=== PATIENT | male | born 1965 | race Caucasian/White ===

== ENCOUNTER 2024-12-12 09:20 | Emergency (ER) | payer OTHER ==
[2024-12-12] MEDS ORDERED: NA CHLORIDE 0.9% 1,000 ML ONE (09:57)
[2024-12-12] MEDS ORDERED: ONDANSETRON 4 MG/2 ML VIAL ONE (09:57)
--- NOTE | 2024-12-12 10:35 | RAD REPORT ---
Procedure: Chest Pa And Lat (2 Views) HISTORY: Cough COMPARISON: none FINDINGS: The lungs appear clear of acute infiltrate. No significant pleural effusion noted. The heart is normal size. IMPRESSION: No acute abnormality is displayed.
--- NOTE | 2024-12-12 11:07 | EDPHYS ---
Physician Documentation [facility] Name: Livan Avila Age: 59 yrs Sex: Male : 1965 Arrival Date: 12/12/2024 Time: 09:20 Bed 6 Private MD: ED Physician Rick Zamarripa HPI: 12/12 10:20 This 59 yrs old Male presents to ER via Ambulatory with complaints of dr5 Breathing Difficulty. 10:20 This 59 yrs old Male presents to ER via Ambulatory with complaints of feelings of dr5 nausea, cough, and rectal pain. 10:20 The patient has shortness of breath. Onset: The symptoms/episode began/occurred 2 dr5 day(s) ago. Patient is a 59-year-old male with history of colon polyps and kidney cancer coming in with possible rectal pain and the feeling of "I have parasites". Patient also reports he has a cough with productive sputum that is clear in nature. Patient states that he is currently being seen by Krystle Eid and has an appointment scheduled to be seen on Saturday at 3 PM. Patient is currently collecting a stool sample per their orders as well as has CT of chest abdomen pelvis scheduled in approximately a week.. Historical: - Allergies: 09:36 Codeine; aa5 09:36 Morphine; aa5 - PMHx: 09:36 Colon Polyps; Precancerous; Vertigo; Kidney Cancer (Unknown); aa5 - PSHx: 09:36 Appendectomy; aa5 - Immunization history:: Adult Immunizations unknown. - Infectious Disease History:: Denies. - Social history:: Smoking status: Reported history of juuling and/or vaping. ROS: 10:20 Constitutional: as per hpi dr5 Exam: 10:20 Constitutional: This is a well developed, well nourished patient who is awake, alert, dr5 and in no acute distress. Head/Face: Normocephalic, atraumatic. ENT: Nares patent. No nasal discharge, no septal abnormalities noted. Tympanic membranes are normal and external auditory canals are clear. Oropharynx with no redness, swelling, or masses, exudates, or evidence of obstruction, uvula midline. Mucous membranes moist. Neck: Trachea midline, no thyromegaly or masses palpated, and no cervical lymphadenopathy. Supple, full range of motion without nuchal rigidity, or vertebral point tenderness. No Meningismus. Chest/axilla: Normal chest wall appearance and motion. Nontender with no deformity. No lesions are appreciated. Cardiovascular: Regular rate and rhythm with a normal S1 and S2. Normal PMI, no JVD. No pulse deficits. Respiratory: Lungs have equal breath sounds bilaterally, clear to auscultation. No rales, rhonchi or wheezes noted. No increased work of breathing, no retractions or nasal flaring. Back: No spinal tenderness. No costovertebral tenderness. Full range of motion. Skin: Warm, dry with normal turgor. Normal color with no rashes, no lesions, and no evidence of cellulitis. Neuro: Awake and alert, GCS 15, oriented to person, place, time, and situation. Cranial nerves II-XII grossly intact. Motor strength 5/5 in all extremities. Sensory grossly intact. Cerebellar exam normal. Normal gait. 10:20 : CVA tenderness, is absent, Male external genitalia: normal, Rectal exam: hemorrhoid(s), external, are present, JEEVAN Bang[place]. No thrombosed hemorrhoid appreciated. No bleeding or pinworms noted., Vital Signs: 09:26 BP 128 / 97; Pulse 82; Resp 18 S; Temp 97.8(TE); Pulse Ox 98% on R/A; Weight 53.07 kg aa5 (R); Height 5 ft. 7 in. (R); 11:00 BP 128 / 97; Pulse 54; Resp 16; Pulse Ox 99% on R/A; hb 09:26 Body Mass Index 18.32 (53.07 kg, 170.18 cm) aa5 MDM: 09:24 Medical Screening Exam initiated dr5 09:48 ED course: Patient has CT scan of C/A/P on December 21 with Krystle Eid. Patient is dr5 currently giving a stool sample and dropping it off Saturday for evaluation.. 11:38 Differential diagnosis: asthma, Bronchitis pneumonia. Antibiotic administration: Not dr5 indicated, the patient does not have an appreciated infiltrate. Data reviewed: vital signs, nurses notes, radiologic studies, plain films. I considered the following discharge prescriptions or medication management in the emergency department Medications were administered in the Emergency Department. See MAR. Care significantly affected by the following chronic conditions: Colon polyps and kidney cancer. Care significantly affected by the following Social Determinants of Health: Poor access to healthcare and/or lack of insurance, Poor access to transportation, Problems related to employment. Counseling: I had a detailed discussion with the patient and/or guardian regarding the historical points, exam findings, and any diagnostic results supporting the discharge/admit diagnosis, the presence of at least one elevated blood pressure reading (>120/80) during this emergency department visit, radiology results, the need for outpatient follow up, for definitive care, a family practitioner, to return to the emergency department if symptoms worsen or persist or if there are any questions or concerns that arise at home. Medication response: Zofran relieved the patient's nausea. ED course: Patient reports he is feeling much better. Discussed hemorrhoids and sitz baths to help relieve pain. Reiterated and encouraged patient to keep appointment on Saturday at 3 PM and to take samples as required. All questions answered and patient is feeling much better. No pain at this time. All questions answered. Strict ER precautions given. 12/12 09:56 Order name: Chest Pa And Lat (2 Views) XRAY; Complete Time: 10:52 dr5 Administered Medications: 10:06 Drug: NS 0.9% IV 1000 ml IV at 1000 ml once; to be given as a bolus over 60 minutes hb Route: IV; Rate: 1000 ml; Site: left antecubital; 10:59 Follow up: Response: No adverse reaction; IV Status: Completed infusion; IV Intake: hb 1000ml 10:06 Drug: Ondansetron IVP 4 mg IVP once; over 2 minutes Route: IVP; Site: left antecubital; hb 10:40 Follow up: Response: No adverse reaction hb Disposition Summary: 12/12/24 11:07 Discharge Ordered Notes: Location: Home dr5 Condition: Stable dr5 Diagnosis - Acute pharyngitis, unspecified dr5 - Unspecified hemorrhoids dr5 Followup: dr5 - With: Emergency Department - When: As needed - Reason: Worsening of condition Followup: dr5 - With: Private Physician - When: 1 - 2 days - Reason: Recheck today's complaints, Continuance of care, Re-evaluation by your physician Discharge Instructions: - Discharge Summary Sheet dr5 - Hemorrhoids dr5 - How to Take a Sitz Bath dr5 - Sore Throat dr5 Forms: - Medication Reconciliation Form dr5 - Patient Portal Instructions dr5 - Leadership Thank You Letter dr5 Prescriptions: - Ibuprofen 800 mg Oral Tablet - take 1 tablet ORAL route every 12 hours As needed take with food; 20 tablet; dr5 Refills: 0, Product Selection Permitted Signatures: Dispatcher [employer] Ирина Khan, RN RN aa5 Sveta Nolan RN RN hb Maynor, Corona, WOOD FLOOR LAYER-C WOOD FLOOR LAYER-Cdr5 Corrections: (The following items were deleted from the chart) 09:57 09:57 Chest Pa And Lat (2 Views)+RAD.RAD.BRZ ordered. EDMS EDMS
--- NOTE | 2024-12-12 11:07 | ER ---
Nurse's Notes [facility] Name: Livan Avila Age: 59 yrs Sex: Male : 1965 Arrival Date: 12/12/2024 Time: 09:20 Bed 6 Private MD: Diagnosis: Acute pharyngitis, unspecified;Unspecified hemorrhoids Presentation: 12/12 09:26 Chief complaint: Patient states: rectal pain and states "I think I have parasites". aa5 09:26 Coronavirus screen: At this time, the client does not indicate any symptoms associated aa5 with coronavirus-19. Ebola Screen: Patient denies travel to an Ebola-affected area in the 21 days before illness onset. Initial Sepsis Screen: Does the patient meet any 2 criteria? No. Patient's initial sepsis screen is negative. Does the patient have a suspected source of infection? No. Patient's initial sepsis screen is negative. Risk Assessment: Do you want to hurt yourself or someone else? Patient reports no desire to harm self or others. Onset of symptoms was 2024. 09:26 Acuity: RASHEED 3 aa5 09:26 Method Of Arrival: Ambulatory aa5 Historical: - Allergies: 09:36 Codeine; aa5 09:36 Morphine; aa5 - PMHx: 09:36 Colon Polyps; Precancerous; Vertigo; Kidney Cancer (Unknown); aa5 - PSHx: 09:36 Appendectomy; aa5 - Immunization history:: Adult Immunizations unknown. - Infectious Disease History:: Denies. - Social history:: Smoking status: Reported history of juuling and/or vaping. Screenin:[address] [facility] ED Fall Risk Assessment (Adult) History of falling in the last 3 months, hb including since admission No falls in past 3 months (0 pts) Confusion or Disorientation No (0 pts) Intoxicated or Sedated No (0 pts) Impaired Gait No (0 pts) Mobility Assist Device Used No (0 pt) Altered Elimination No (0 pt) Score/Fall Risk Level 0 - 2 = Low Risk Oriented to surroundings, Maintained a safe environment, Educated pt \\T\\ family on fall prevention, incl call for assistance when getting out of bed. Abuse screen: Denies threats or abuse. Denies injuries from another. Nutritional screening: No deficits noted. Tuberculosis screening: No symptoms or risk factors identified. Assessment: 10:07 General: Appears in no apparent distress. Behavior is calm, cooperative. Pain: Denies hb pain. Neuro: Level of Consciousness is awake, alert, obeys commands, Oriented to person, place, time, situation. Cardiovascular: Patient's skin is warm and dry. Rhythm is regular. Respiratory: Reports shortness of breath Airway is patent Respiratory effort is even, unlabored, Respiratory pattern is regular, symmetrical. GI: Reports nausea, tingling in rectum. : No signs and/or symptoms were reported regarding the genitourinary system. EENT: No signs and/or symptoms were reported regarding the EENT system. Derm: Skin is pink, warm \\T\\ dry. Musculoskeletal: No signs and/or symptoms reported regarding the musculoskeletal system. 11:00 Reassessment: Patient appears in no apparent distress at this time. Patient and/or hb family updated on plan of care and expected duration. Pain level reassessed. Patient is alert, oriented x 3, equal unlabored respirations, skin warm/dry/pink. 11:51 Reassessment: Patient appears in no apparent distress at this time. Patient and/or hb family updated on plan of care and expected duration. Pain level reassessed. Patient is alert, oriented x 3, equal unlabored respirations, skin warm/dry/pink. Vital Signs: 09:26 BP 128 / 97; Pulse 82; Resp 18 S; Temp 97.8(TE); Pulse Ox 98% on R/A; Weight 53.07 kg aa5 (R); Height 5 ft. 7 in. (R); 11:00 BP 128 / 97; Pulse 54; Resp 16; Pulse Ox 99% on R/A; hb 09:26 Body Mass Index 18.32 (53.07 kg, 170.18 cm) aa5 ED Course: 09:23 Patient arrived in ED. rg4 09:23 Corona Mcguire FNP-C [facility]. dr5 09:23 Rick Zamarripa MD is Attending Physician. dr5 09:26 Arm band placed on Patient placed in an exam room, on a stretcher. aa5 09:38 Triage completed. aa5 09:57 Nikolai Coello, RN is Primary Nurse. bp 10:05 Inserted saline lock: 20 gauge in left antecubital area, using aseptic technique. hb Flushed with 10 mL NS. 10:07 Patient has correct armband on for positive identification. Placed in gown. Bed in low hb position. Call light in reach. Provided Education on: tests, result times, medications, use of call light. Door closed. Warm blanket given. 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 hb 10:27 Chest Pa And Lat (2 Views) XRAY In Process Unspecified. EDMS 11:51 IV discontinued, intact, bleeding controlled, No redness/swelling at site. Pressure hb dressing applied. Administered Medications: 10:06 Drug: NS 0.9% IV 1000 ml IV at 1000 ml once; to be given as a bolus over 60 minutes hb Route: IV; Rate: 1000 ml; Site: left antecubital; 10:59 Follow up: Response: No adverse reaction; IV Status: Completed infusion; IV Intake: hb 1000ml 10:06 Drug: Ondansetron IVP 4 mg IVP once; over 2 minutes Route: IVP; Site: left antecubital; hb 10:40 Follow up: Response: No adverse reaction hb Medication: 10:07 VIS not applicable for this client. hb Intake: 10:59 IV: 1000ml; Total: 1000ml. hb Outcome: 11:07 Discharge ordered by MD. dr5 11:51 Discharged to home ambulatory, hb 11:51 Condition: stable 11:51 Discharge instructions given to patient, Instructed on discharge instructions, follow up and referral plans. medication usage, Demonstrated understanding of instructions, follow-up care, medications, Prescriptions given X 1, 11:52 Patient left the ED. hb Signatures: Dispatcher [employer] EDNM Ирина Uribe, RN RN aa5 Sveta Nolan, RN Lyric Slater rg4 Nikolai Coello, RN RN Corona Zaragoza, ROAD MENDER-C ROAD MENDER-Cdr5
[2024-12-12 12:10] VITALS: BP 128/97; TEMP 97.8
[2024-12-12 12:15] VITALS: O2SAT 99
== END 2024-12-12 11:52 | disposition home or self-care (01) ==
LOC: ER 09:20
DX: J02.9 Acute pharyngitis, unspecified (principal); K64.9 Unspecified hemorrhoids; R05.9 Cough, unspecified; R11.0 Nausea
CPT/HCPCS: 96361; 71046; 96374; 99284; J2405; J7030

== ENCOUNTER 2024-12-15 10:13 | Emergency (ER) | payer OTHER ==
[2024-12-15] MEDS ORDERED: FENTANYL CITR 100 MCG/2 ML ONE (10:34)
[2024-12-15] MEDS ORDERED: ONDANSETRON 4 MG/2 ML VIAL ONE (10:34)
[2024-12-15] MEDS ORDERED: NA CHLORIDE 0.9% 1,000 ML ONE (10:35)
[2024-12-15 10:49] LABS: Absolute Eosinophils 0.1 K/uL (0-0.5); Absolute Lymphocytes (CBC) 1.2 K/uL (0.7-4.9); Absolute Monocytes 0.4 K/uL (0.1-1.3); Absolute Neutrophil 2.4 K/uL (1.8-8.0); Basophils % 0.7 % (0-1.3); Eosinophils % 1.7 % (0-4.4); Hematocrit 35.3 % (39.6-49.0); Hemoglobin 12.1 g/dL (13.6-17.9); Lymphocytes % 29.9 % (15.3-44.8); MCH 33.5 pg (27.0-35.0); MCHC 34.4 g/dL (32.0-36.0); MCV 97.4 fL (80-100); MPV 11.4 fL (7.6-11.3); Neutrophils % 57.7 % (41.7-73.7); Nucleated Red Blood Cells % 0.1 % (0-0); Platelets 67 thou/uL (152-406); RBC Red Blood Cell Count 3.62 M/uL (4.33-5.43); Red Cell Distribution Width 14.5 % (12.1-15.2)
[2024-12-15 11:02] LABS: AST/SGOT 11 U/L (15-37); Albumin 3.4 g/dL (3.4-5.0); Albumin/Globulin Ratio 1.1 (1.1-1.8); Alkaline Phosphatase 53 U/L (45-117); Anion Gap 3.9 mEq/L (5.0-15.0); BUN Blood Urea Nitrogen 11 mg/dL (7-18); Bicarbonate 33 mEq/L (21-32); Bilirubin Total 0.3 mg/dL (0.2-1.0); Globulin 3.2 g/dL (2.3-3.5); Glomerular Filtration Rate 82 ml/min (=/>90); Glucose Level 111 mg/dL (74-106); Lipase 59 U/L (13-75); Potassium 3.9 mEq/L (3.5-5.1); Protein, Total 6.6 g/dL (6.4-8.2); Sodium Level 139 mEq/L (136-145)
[2024-12-15 11:04] LABS: ALT/SGPT < 14 U/L (16-61)
--- NOTE | 2024-12-15 11:44 | RAD REPORT ---
EXAMINATION: Abdomen Pelvis W Contrast CLINICAL INDICATION: Male, 59 years old.ABD PAIN TECHNIQUE: CT abdomen and pelvis was performed, after the administration of IV contrast, as per [facility] protocol. Axial, sagittal and coronal reconstructions were obtained. One or more of the following dose reduction techniques were used: Automated exposure control, adjustment of the mA and/o r kV according to patient size, and/or iterative reconstruction. Unless otherwise specified, incidental findings do not require dedicated imaging follow-up. [id number]. COMPARISON: 11/23/2023 FINDINGS: LOWER CHEST: No acute process identified.No significant pericardial effusion. Mild coronary artery ca lcifications.Mild circumferential thickening of the distal esophagus which could reflect esophagitis. UPPER GI: No significant abnormality. LIVER: Benign appearing low density liver lesions. No suspicious mass. GALLBLADDER/BILE DUCTS: No biliary ductal dilatation.? PANCREAS: No mass, ductal dilation, or himanshu-pancreatic fluid. SPLEEN: Unremarkable. ADRENALS: No adrenal masses. KIDNEYS AND URETERS: No hydronephrosis.Indeterminate left renal lesion measuring 2.5 cm, previously 1 .6 cm. The lesion does appear more cystic compared with prior.No renal calculi. ABDOMINAL AORTA AND OTHER VESSELS: Moderate atherosclerotic changes without aortic aneurysm. PERITONEUM: No abnormal free fluid. No free air. LYMPH NODES: No pathologic lymphadenopathy. ABDOMINAL WALL: Unremarkable SMALL BOWEL/COLON: Small bowel has normal course and caliber. No colonic wall thickening or pericolon ic inflammatory changes.Nonvisualized appendix but no secondary signs of acute appendicitis. URINARY BLADDER: Underdistended but grossly unremarkable. REPRODUCTIVE ORGANS: No pathologic process. MUSCULOSKELETAL: No acute or suspicious osseous abnormality. ADDITIONAL FINDINGS: None. IMPRESSION: No acute findings within the abdomen or pelvis. Indeterminate left renal lesion which is increased in size but appears more cystic. Urologic referral, if not previously obtained, is recommended. Incidental findings as noted above.
--- NOTE | 2024-12-15 11:50 | EDPHYS ---
Physician Documentation [facility] Name: Livan Avila Age: 59 yrs Sex: Male : 1965 Arrival Date: 12/15/2024 Time: 10:13 Bed 17 Private MD: ED Physician Davide Gorman HPI: 12/15 10:25 This 59 yrs old Male presents to ER via Unassigned with unknown complaint. ec2 10:25 Patient arrives today d/t concern for abd pain. reports that he has a hx of abd wall ec2 hernia. pt has external papers that show recent ct ap imaging in 08/2024 that specifically comment no abd wall hernia. reports that he is having worsening abd pain, reports some nausea. no vomiting, denies any blood in the stool. Historical: - Allergies: 10:27 Codeine; ap3 10:27 Morphine; ap3 - PMHx: 10:27 Colon Polyps; Precancerous; colon cancer (kidney cancer); Vertigo; ap3 - PSHx: 10:27 Appendectomy; ap3 - Immunization history:: Client reports receiving the 2nd dose of the Covid vaccine, Flu vaccine is not up to date. - Infectious Disease History:: Denies. - Social history:: Smoking status: unknown. ROS: 10:27 Constitutional: as per hpi ec2 Exam: 10:27 Constitutional: GEN: NAD Head: atraumatic Eyes: EOMI Ears: External ears are ec2 normal. CV: regular rate LUNGS: no respiratory distress ABD: non-distended, soft, generally tender, not guarding, not rigid, no abdominal wall hernias appreciated. SKIN: no evidence of rashes MSK: no evidence of trauma Vital Signs: 10:24 BP 140 / 83; Pulse 73; Resp 19; Temp 98(O); Pulse Ox 100% on R/A; Weight 51.71 kg; ap3 Height 5 ft. 7 in. ; 10:24 Body Mass Index 17.85 (51.71 kg, 170.18 cm) ap3 MDM: 10:23 Medical Screening Exam initiated ec2 10:27 Data reviewed: vital signs, nurses notes. ED course: Patient arrives today for ec2 evaluation of worsening abdominal pain. Examination yields abdominal findings above. Will obtain lab work, CT imaging and treat the patient's symptoms. DDx includes Enteritis, diverticulitis, doubt obstruction. 11:46 ED course: CBC shows leukopenia along with slight anemia, CMP shows no acute correction ec2 will processes lipase within normal ranges. CT abdomen pelvis shows no acute intra-abdominal process on reassessment patient is well-appearing no acute distress. Will discharge home and have patient follow-up PCP and GI. Return precautions given.. 12/15 10:25 Order name: CBC with Diff ec2 12/15 10:25 Order name: CMP; Complete Time: 11:33 ec2 12/15 10:25 Order name: Lipase; Complete Time: 11:33 ec2 12/15 12:21 Order name: CBC Smear Scan EDMS 12/15 10:25 Order name: CT Abd/Pelvis - IV Contrast Only; Complete Time: 11:46 ec2 12/15 10:25 Order name: IV Saline Lock; Complete Time: 10:41 ec2 12/15 10:25 Order name: Labs collected and sent; Complete Time: 10:41 ec2 Administered Medications: 10:44 Drug: Ondansetron IVP 4 mg IVP once; over 2 minutes Route: IVP; Site: left antecubital; jl7 12:22 Follow up: Response: No adverse reaction; Nausea is decreased ap3 10:44 Drug: NS 0.9% IV 1000 ml IV at 1 bolus Per protocol; to be given as a bolus over 60 jl7 minutes Route: IV; Rate: 1 bolus; Site: left antecubital; 12:22 Follow up: IV Status: Completed infusion; IV Intake: 1000ml ap3 10:44 Drug: fentaNYL (PF) IVP 50 mcg IVP once Route: IVP; Site: left antecubital; jl7 12:22 Follow up: Response: No adverse reaction; Pain is decreased ap3 Disposition Summary: 12/15/24 11:50 Discharge Ordered Notes: Location: Home ec2 Condition: Stable ec2 Diagnosis - Abdominal pain, Generalized ec2 Followup: ec2 - With: Private Physician - When: - Reason: Re-evaluation by your physician Discharge Instructions: - Discharge Summary Sheet ec2 - Abdominal Pain, Adult ec2 Forms: - Medication Reconciliation Form ec2 - Antibiotic Education ec2 - Prescription Opioid Use ec2 - Patient Portal Instructions ec2 - Leadership Thank You Letter ec2 Prescriptions: - Meclizine 25 mg Oral Tablet - take 1 tablet ORAL route every 8 hours As needed; 30 tablet; Refills: 0, ec2 Product Selection Permitted - dicyclomine 10 mg Oral capsule - take 1 capsule ORAL route 3 times per day; 21 capsule; Refills: 0, Product ec2 Selection Permitted Signatures: Dispatcher [employer] Cookie Sterling RN RN jl7 Sandra Monk RN RN ap3 Davide Gorman MD MD ec2 Corrections: (The following items were deleted from the chart) 10:28 10:27 PMHx: kidney cancer (Unknown); ap3 ap3
--- NOTE | 2024-12-15 11:50 | ER ---
Nurse's Notes [facility] Name: Livan Avila Age: 59 yrs Sex: Male : 1965 Arrival Date: 12/15/2024 Time: 10:13 Bed 17 Private MD: Diagnosis: Abdominal pain, Generalized Presentation: 12/15 10:24 Chief complaint: EMS states: they were called for a patient with abdominal discomfort, ap3 dizziness and nausea since he woke up this morning. patient is complaining of a "weird spot" on his left lower abdomen since an ablation in August of 2024 that is painful on palpation. patient has a hx of colon cancer. Coronavirus screen: At this time, the client does not indicate any symptoms associated with coronavirus-19. Ebola Screen: No symptoms or risks identified at this time. Initial Sepsis Screen: Does the patient meet any 2 criteria? No. Patient's initial sepsis screen is negative. Does the patient have a suspected source of infection? No. Patient's initial sepsis screen is negative. Risk Assessment: Do you want to hurt yourself or someone else? Patient reports no desire to harm self or others. Onset of symptoms was December 15, 2024. 10:24 Method Of Arrival: EMS: [facility] ap3 10:24 Acuity: RASHEED 3 ap3 Triage Assessment: 10:28 General: Appears uncomfortable, Behavior is calm, cooperative. Pain: Complains of pain ap3 in left lower quadrant. Neuro: Level of Consciousness is awake, alert, obeys commands, Oriented to person, place, time, situation, Reports dizziness. Cardiovascular: Patient's skin is warm and dry. Respiratory: Airway is patent Respiratory effort is even, unlabored, Respiratory pattern is regular, symmetrical. GI: Reports lower abdominal pain, nausea. Historical: - Allergies: 10:27 Codeine; ap3 10:27 Morphine; ap3 - PMHx: 10:27 Colon Polyps; Precancerous; colon cancer (kidney cancer); Vertigo; ap3 - PSHx: 10:27 Appendectomy; ap3 - Immunization history:: Client reports receiving the 2nd dose of the Covid vaccine, Flu vaccine is not up to date. - Infectious Disease History:: Denies. - Social history:: Smoking status: unknown. Screenin:29 [facility] ED Fall Risk Assessment (Adult) History of falling in the last 3 months, ap3 including since admission No falls in past 3 months (0 pts) Confusion or Disorientation No (0 pts) Intoxicated or Sedated No (0 pts) Impaired Gait No (0 pts) Mobility Assist Device Used No (0 pt) Altered Elimination No (0 pt) Score/Fall Risk Level 0 - 2 = Low Risk Oriented to surroundings, Maintained a safe environment, Educated pt \\T\\ family on fall prevention, incl call for assistance when getting out of bed, Assessed \\T\\ reinforced patient's understanding of fall precautions, Hourly rounding (assess needs \\T\\ fall precautionary measures) done, Used ambulatory aids as needed (educated on \\T\\ assisted with). Abuse screen: Denies threats or abuse. Nutritional screening: No deficits noted. Tuberculosis screening: No symptoms or risk factors identified. Vital Signs: 10:24 BP 140 / 83; Pulse 73; Resp 19; Temp 98(O); Pulse Ox 100% on R/A; Weight 51.71 kg; ap3 Height 5 ft. 7 in. ; 10:24 Body Mass Index 17.85 (51.71 kg, 170.18 cm) ap3 ED Course: 10:19 Patient arrived in ED. jl7 10:23 Davide Gorman MD is Attending Physician. ec2 10:24 Sandra Monk, JEEVAN is Primary Nurse. ap3 10:27 Triage completed. ap3 10:29 Arm band placed on right wrist. ap3 10:41 Inserted saline lock: 20 gauge in left antecubital area, using aseptic technique. Blood rk3 collected. Flushed with 10 mL NS. 10:41 CBC with Diff Sent. rk3 10:41 CMP Sent. rk3 10:41 Lipase Sent. rk3 11:19 Radiology exam delayed due to went to get pt for scan, but he siad he wanted to use the bathroom first. 11:32 CT Abd/Pelvis - IV Contrast Only In Process Unspecified. EDMS 12:22 No provider procedures requiring assistance completed. IV discontinued, intact, ap3 bleeding controlled, No redness/swelling at site. Pressure dressing applied. 12:24 Patient has correct armband on for positive identification. Bed in low position. Call ap3 light in reach. Side rails up X2. Provided Education on: discharge instructions. Administered Medications: 10:44 Drug: Ondansetron IVP 4 mg IVP once; over 2 minutes Route: IVP; Site: left antecubital; jl7 12:22 Follow up: Response: No adverse reaction; Nausea is decreased ap3 10:44 Drug: NS 0.9% IV 1000 ml IV at 1 bolus Per protocol; to be given as a bolus over 60 jl7 minutes Route: IV; Rate: 1 bolus; Site: left antecubital; 12:22 Follow up: IV Status: Completed infusion; IV Intake: 1000ml ap3 10:44 Drug: fentaNYL (PF) IVP 50 mcg IVP once Route: IVP; Site: left antecubital; jl7 12:22 Follow up: Response: No adverse reaction; Pain is decreased ap3 Medication: 12:24 VIS not applicable for this client. ap3 Intake: 12:22 IV: 1000ml; Total: 1000ml. ap3 Outcome: 11:50 Discharge ordered by . ec2 12:23 Discharged to lobby to wait for ride ap3 12:23 Condition: good 12:23 Discharge instructions given to patient, Instructed on discharge instructions, follow up and referral plans. medication usage, Demonstrated understanding of instructions, follow-up care, medications, Prescriptions given X 2, 12:24 Patient left the ED. ap3 Signatures: Dispatcher [employer] Ofelia Thornton Jahala, RN RN jl7 Sandra Monk RN RN ap3 Davide Gorman MD MD ec2 Luisa Cooper rk3 Corrections: (The following items were deleted from the chart) 10: 10:27 PMHx: kidney cancer (Unknown); ap3 ap3
[2024-12-15 12:21] LABS: Blood Morphology Comment NOT SEEN (NOT SEEN); Platelet Estimate DECR; Platelets Clumped RARE; White Blood Cell Scan OK (OK)
[2024-12-15 12:43] VITALS: BP 140/83; TEMP 98; O2SAT 100
== END 2024-12-15 12:24 | disposition home or self-care (01) ==
LOC: ER 10:13
DX: R10.84 Generalized abdominal pain (principal); Z85.038 Personal history of other malignant neoplasm of large intestine
CPT/HCPCS: 85025; 36415; 83690; 80053; 74177; Q9967; J3010; J2405; J7030